=== PATIENT | male | born 1950 | race Caucasian/White ===

== ENCOUNTER 2022-09-12 09:14 | Outpatient (CLI) | payer OTHER, SELFPAY ==
[2022-09-12 10:46] LABS: Albumin* 4.7 g/dL (3.3-5.0)
[2022-09-12 10:47] LABS: Chloride* 99 mmol/L (96-114); Potassium* 3.7 mmol/L (3.6-5.1); Sodium* 140 mmol/L (135-149)
[2022-09-12 10:49] LABS: Alkaline Phosphatase* 80 U/L (40-150); Aspartate Amino Transferase* 26 U/L (12-35); Bilirubin Total* 0.5 mg/dL (0.1-1.5); Carbon Dioxide* 27 mmol/L (20-32); Creatinine* 1.9 mg/dL (0.5-1.5); Estimated Glomerular Filt Rate 37 ml/min; Total Protein* 8.1 g/dL (6.0-8.3)
[2022-09-12 10:50] LABS: Alanine Aminotransferase* 18 U/L (4-50); Blood Urea Nitrogen* 37 mg/dL (7-30); Calcium* 9.6 mg/dL (8.4-10.6); Glucose* 123 mg/dL (60-115)
[2022-09-12 10:52] LABS: Appearance Urine Clear (Clear); Bilirubin Urine Negative (Negative); Blood Urine Negative (Negative); Color Urine Yellow (Yellow); Glucose Urine 2+ (Negative); Ketones Urine Negative (Negative); Leukocyte Esterase Urine Negative (Negative); Nitrite Urine Negative (Negative); Protein Urine 2+ (Negative); Specific Gravity Urine 1.015 (1.000-1.030); Urobilinogen Urine 0.2 (0.2-1.0); pH Urine 5.5 (5.0-8.5)
[2022-09-12 11:00] LABS: RBC Urine 0-2 (0-2); Squamous Epithelial Cell Urine Few (None-Few); WBC Urine 0-2 (0-5)
[2022-09-12 16:12] LABS: Creatinine Urine 67.4 mg/dL; Microalbumin Creatinine Ratio 320 mg/g (0-30); Microalbumin Urine 22 mg/dL
== END 2022-09-12 09:15 | disposition home or self-care (01) ==
PROVIDERS: Visit Provider Chiropractor
DX: I25.9 Chronic ischemic heart disease, unspecified (principal); I34.0 Nonrheumatic mitral (valve) insufficiency; I35.1 Nonrheumatic aortic (valve) insufficiency
CPT/HCPCS: 36415; 80053; 81003; 81015; 82043; 82570; 93306